=== PATIENT | male | born 1955 | race Caucasian/White ===

== ENCOUNTER 2024-04-11 05:59 | Day surgery (SDC) | payer MEDICARE, OTHER ==
[2024-04-10 09:21] VITALS: BMI 20.9
[2024-04-11] MEDS ORDERED: Dexamethasone 4 mg/ml Vial ONE (07:05)
[2024-04-11] MEDS ORDERED: Ondansetron PF 4 MG/2 ML Vial ONE (07:05)
[2024-04-11] MEDS ORDERED: Rocuronium Bromide 10 MG/ML (10ML VIAL) ONE (07:05)
[2024-04-11] MEDS ORDERED: Lidocaine 2% PF 5 ML VIAL ONE (07:05)
[2024-04-11] MEDS ORDERED: Bupivacaine 0.25% HCL 30 ML VIAL ONE (07:10)
[2024-04-11] MEDS ORDERED: EPINEPHrine 1 MG/ML VIAL ONE (07:10)
[2024-04-11] MEDS ORDERED: fentaNYL PF 100 MCG/2 ML SYRINGE ONE (07:12)
[2024-04-11] MEDS ORDERED: PROPOFOL 20 ML ONE (07:12)
[2024-04-11] MEDS ORDERED: ePHEDrine Sulfate 50 MG/10 ML VIAL ONE (07:16)
[2024-04-11] MEDS ORDERED: LevoFLOXacin D5W 500 mg (100 mL) BAG ONE (07:29)
[2024-04-11] MEDS ORDERED: PHENYLEPHRINE-NS 100 MCG/ML 10 ML SYRINGE ONE (07:50)
[2024-04-11] MEDS ORDERED: SUGAMMADEX SODIUM 200 MG/2 ML VIAL ONE (08:37)
[2024-04-11] MEDS ORDERED: HYDROcodone/Acetaminophen 5/325 mg Tablet ONE (10:46)
== END 2024-04-11 11:25 | disposition home or self-care (01) ==
LOC: SDC 05:59
PROVIDERS: ATTEND Surgery
PROC: 0YQ64ZZ Repair Left Inguinal Region, Percutaneous Endoscopic Approach (ICD-10-PCS; principal; 2024-04-11)
DX: K40.90 Unilateral inguinal hernia, without obstruction or gangrene, not specified as recurrent (principal); J45.909 Unspecified asthma, uncomplicated; I10 Essential (primary) hypertension; Z79.51 Long term (current) use of inhaled steroids; Z79.899 Other long term (current) drug therapy; Z88.5 Allergy status to narcotic agent; Z88.0 Allergy status to penicillin; Z98.890 Other specified postprocedural states; Z90.89 Acquired absence of other organs
CPT/HCPCS: 49650; A4314; C1781; J0171; J0665; J1100; J1956; J2001; J2405; J2704